=== PATIENT | female | born 1990 | race Hispanic/Latino ===

== ENCOUNTER 2017-11-18 18:02 | Inpatient (IN) | payer MEDICAID ==
--- NOTE | 2017-11-18 18:20 | C.PDOC ---
History Of Present Illness 27 y/o female, w/ no significant past medical history, presents to the ER for psychiatric evaluation. Patient states that she was talking to her parents on the phone. Patient reports that her parents were lying and she told them that they would find her " body." She was evaluated at [facility], she was medically cleared and diagnosed with delusional disorder. She was transferred here because there were no beds available in [facility]. Patient admits to occasional marijuana use. Denies having suicidal ideation, homicidal ideation, CP, SOB, fever, and chills. Time Seen by Provider: 11/18/17 18:19 Chief Complaint (Nursing): Psychiatric Evaluation History Per: Patient History/Exam Limitations: no limitations Onset/Duration Of Symptoms: Days Current Symptoms Are (Timing): Still Present Severity: Moderate Past Medical History Reviewed: Historical Data, Nursing Documentation, Vital Signs Vital Signs: Last Vital Signs Temp 98.5 F 11/18/17 18:11 Pulse 101 H 11/18/17 18:11 Resp BP 113/75 11/18/17 18:11 Pulse Ox 99 11/18/17 19:31 - Medical History PMH: No Chronic Diseases Surgical History: No Surg Hx Family History: States: No Known Family Hx - Social History Hx Alcohol Use: Yes Hx Substance Use: No - Immunization History Hx Tetanus Toxoid Vaccination: No Hx Influenza Vaccination: No Hx Pneumococcal Vaccination: No Review Of Systems Except As Marked, All Systems Reviewed And Found Negative. Constitutional: Negative for: Fever, Chills Physical Exam - Physical Exam Appears: Non-toxic, No Acute Distress Skin: Normal Color, Warm, Dry Head: Atraumatic, Normacephalic Eye(s): bilateral: Normal Inspection, PERRL, EOMI Nose: Normal Oral Mucosa: Moist Neck: Supple, Other (no meningeal signs) Chest: Symmetrical Cardiovascular: Rhythm Regular Respiratory: Normal Breath Sounds, No Rales, No Rhonchi, No Wheezing Gastrointestinal/Abdominal: Normal Exam, Soft, No Tenderness, No Guarding, No Rebound Back: Normal Inspection Extremity: Normal ROM Extremity: Bilateral: Atraumatic Neurological/Psych: Oriented x3, Normal Speech, Normal Motor, Normal Sensation, Normal Reflexes ED Course And Treatment O2 Sat by Pulse Oximetry: 99 (RA) Pulse Ox Interpretation: Normal Medical Decision Making Medical Decision Making: Neuro exam unremarkable. Delusional on my exam. medically cleared by previous institution. labs reviewed, medically clear Disposition - Disposition Disposition Time: 19:31 Condition: GOOD Forms: [facility] (Maori) - Clinical Impression Clinical Impression: Delusional disorder - Scribe Statement The provider has reviewed the documentation as recorded by the [place] Amrita Mckinney Provider Attestation: All medical record entries made by the Scribe were at my direction and personally dictated by me. I have reviewed the chart and agree that the record accurately reflects my personal performance of the history, physical exam, medical decision making, and the department course for this patient. I have also personally directed, reviewed, and agree with the discharge instructions and disposition.
--- NOTE | 2017-11-18 22:34 | PCM.BM ---
<Lisa Buckley - Last Filed: 11/18/17 22:33> Treatment Plan Problems - Problems identified on initial assessmt Delusions Date Initiated: 11/18/17 (t) Time Initiated: 22:33 Assessment reference: NA Status: Active Treatment assets and liabiliti Patient Assests: physically healthy, good support system Patient Liabilities: substance abuse (Marijuana) - Milieu Protocol Maintain good personal hygiene: daily Encourage regular showers, daily Remind patient to perform daily oral care, every shift Assist patient to perform ADL's Conduct patient checks and document Observation sheet: Q15 minutes Maintain personal safety: every shift Educate patient to report safety concerns to staff, every shift Monitor environment for contraband/sharps Medication safety: Monitor for expected outcome, potential side effects: every shift, Assess barriers to learning: every shift, Assess readiness for medication education: every shift <Chris Scott - Last Filed: 11/19/17 11:33> - Diagnosis (1) Bipolar disorder, curr episode mixed, severe, with psychotic features Status: Acute Interventions: 11/19/17 11:33 * Assess/adjust medications daily and /or as needed * See patient on an individual basis 7x/week to assess level of manic behaviors and stability * Discuss risks, benefits, side effects and alternatives of medications * <Deloris Vanegas - Last Filed: 11/19/17 14:09> Family Contact Family involvement: Family/SO is involved Family contact: Patient agrees to contact Family contact name: Marlen Caldwell-mother Family contacted how many times per week?: 2 - Goals for Treatment Patient goals for treatment: "I want to go home." Discharge/Continuing Care - Education Needs Education Needs: Patient Medication, Patient Coping Skills - Discharge Discharge Criteria: Tolerates medication w/o severe side effects, Reduction of target symptoms Discharge to:: Home, With Family - Treatment Team Participation Discussed with Family/SO: No Was Patient/Family/SO present at Treatment Team Meeting: Yes
[2017-11-19 06:39] VITALS: RESP 20; TEMP 98.5; O2SAT 95
--- NOTE | 2017-11-19 10:40 | PCM.PSYCH ---
Initial Psychiatric Evaluation - Initial Psychiatric Evaluation Type of Admission: Voluntary Legal Status: Capacity Chief Complaint (in patient's own words): My family was saying I am delusional.' History of Present Illness and Precipitating Events: Patient is a 27 years old CF, S, currently living alone, with history of anxiety disorder, was escorted to the hospital, due to a disorganized behavior and suicidal ideation. Patient states a long history of anxiety disorder. However she denies any past history of inpatient psychiatric hospitalizations. she does report history of follow-up with a psychiatrist in the past. Patient appeared very delusional, manic and irritable. She remained a poor historian. She was superficially cooperative but guarded about the details. As per the collateral, mother, patient has seen very delusional and paranoid lately. Since , she has been delusional about her voice instructor that he is in love with her. She has been harassing him on the social media and has been going to his gym. He has put a restraining order against her and she has been to the court. Recently she became increasingly delusional that he is in love with her again, she is very famous celebrity. She has been very irritable, and agitated towards her sister and towards her father. She has been very aggressive towards the family she is not sleeping at all. she believes that she has a physical deformity and she is spending a lot of money on acupuncture and other procedures. As per the mother yesterday when the family tried to convince her became increasingly depressed, became very irritable and agitated and made a statement that you will find my body in a coffin.' Family got concerned, called 911 and patient was escorted to the hospital to get help. Patient appears to have racing thoughts, flight of ideas, irritability and agitation. She continues to have delusions of grandiosity. Her speech was disorganized, circumstantial and tangential. However she denies any suicidal ideation or homicidal ideation. She denies any substance abuse. Medical History: Back and neck pain Current Medications: Active Medications Generic Name Dose Route Start Last Admin Trade Name Freq PRN Reason Stop Dose Admin Cyclobenzaprine HCl 5 mg 11/18/17 21:45 11/18/17 22:04 Flexeril PO 5 mg BID CELIA Administration Diphenhydramine HCl 25 mg 11/18/17 21:40 11/18/17 22:04 Benadryl PO 25 mg Q6H PRN Administration Anxiety Trazodone HCl 50 mg 11/18/17 23:45 11/18/17 23:43 Desyrel PO Not Given HS CELIA Past Psychiatric History - Past Psychiatric History Previous Treatment History: None Pertinent Medical Hx (Current Medical&Sleep Prob, Allergies): Allergies Allergy/AdvReac Type Severity Reaction Status Date / Time No Known Allergies Allergy Unverified 11/18/17 18:16 No Known Home Med 11/18/17 Review of Systems - Review of Systems All systems: reviewed and no additional remarkable complaints except - Psychiatric Psychiatric: Anxiety, Behavioral Changes, Irritability, Mood Swings, Paranoia. absent: Auditory Hallucinations, Suicidal Ideation Mental Status Examination - Personal Presentation Personal Presentation: Looks stated age - Affect Affect: Broad - Motor Activity Motor Activity: Psychomotor Agitation - Reliability in Providing Information Reliability in Providing Information: Poor, due to altered mood - Speech Speech: Disorganized - Mood Mood: Anxious - Formal Thought Process Formal Thought Process: Delusions, Loosening of associations, Flight of ideas, Circumstantial - Hallucinations/Delusions Delusions: Persecution - Obsessions/Compulsions Obsessions: No Compulsions: No - Cognitive Functions Orientation: Person, Place, Situation, Time Sensorium: Alert Attention/Concentration: Attentive Abstract Thinking: [place] Estimate of Intelligence: Below average Judgement: Imparied, as evidence by: Poor judgement, Imparied, as evidence by: Lack of insight into illness - Risk Risk: Diminished functioning - Strength & Assets Inventory Strength & Assets Inventory: Family support DSM 5 DX - DSM 5 DSM 5 Diagnosis: Bipolar I most recent episode manic severe with psychotic features - Recommended/Plan of Treatment Treatment Recommendations and Plan of Treatment: Bipolar I most recent episode manic severe with psychotic features CBT Psychoeducation Supportive therapy, group therapy, individual therapy Benadryl 25 mg by mouth every 6 hours when necessary he Trazodone 50 mg by mouth daily at bedtime - Smoking Cessation Smoking Cessation Initiated: No
[2017-11-20 08:53] VITALS: BP 106/71; PULSE 134
--- NOTE | 2017-11-20 09:56 | PCM.PYCHDC ---
Mental Status Examination - Mental Status Examination Orientation: Person, Place, Situation, Time Memory: Intact Mood: Neutral Affect: Constricted Speech: Soft Attention: WNL Concentration: WNL Association: WNL Fund of Knowledge: WNL Formal Thought Process: No Impairment Description of patient's judgement and insight: PARTIALLY IMPAIRED Psychotic Thoughts and Behaviors: denies any AVH Suicidal Ideation: No Current Homicidal Ideation?: No Discharge Summary - Discharge Note Reason for Hospitalization: Patient is a 27 years old CF, S, currently living alone, with history of anxiety disorder, was escorted to the hospital, due to a disorganized behavior and suicidal ideation. Patient states a long history of anxiety disorder. However she denies any past history of inpatient psychiatric hospitalizations. she does report history of follow-up with a psychiatrist in the past. Patient appeared very delusional, manic and irritable. She remained a poor historian. She was superficially cooperative but guarded about the details. As per the collateral, mother, patient has seen very delusional and paranoid lately. Since , she has been delusional about her networking technology instructor that he is in love with her. She has been harassing him on the social media and has been going to his gym. He has put a restraining order against her and she has been to the court. Recently she became increasingly delusional that he is in love with her again, she is very famous celebrity. She has been very irritable, and agitated towards her sister and towards her father. She has been very aggressive towards the family she is not sleeping at all. she believes that she has a physical deformity and she is spending a lot of money on acupuncture and other procedures. As per the mother yesterday when the family tried to convince her became increasingly depressed, became very irritable and agitated and made a statement that you will find my body in a coffin.' Family got concerned, called 911 and patient was escorted to the hospital to get help. Patient appears to have racing thoughts, flight of ideas, irritability and agitation. She continues to have delusions of grandiosity. Her speech was disorganized, circumstantial and tangential. However she denies any suicidal ideation or homicidal ideation. She denies any substance abuse. Consultations:: List each consultation separately and include: 1. Reason for request. 2. Findings. 3. Follow-up Summary of Hospital Course include:: 1. Description of specific treatment plan utilized for patients during their course of treatmen. 2. Summarize the time- course for resolution of acute symptoms and/or regressed behaviors. 3. Describe issues identified and worked on during hospitalization. 4. Describe medication utilized. 5. Describe medical problems identified and treated. 6. Reassessment of suicide risk Summary of Hospital Course: Patient is a 27 years old CF, S, currently living alone, with history of anxiety disorder, was escorted to the hospital, due to a disorganized behavior and suicidal ideation. Patient states a long history of anxiety disorder. However she denies any past history of inpatient psychiatric hospitalizations. she does report history of follow-up with a psychiatrist in the past. Patient appeared very delusional, manic and irritable. She remained a poor historian. She was superficially cooperative but guarded about the details. As per the collateral, mother, patient has seen very delusional and paranoid lately. Since , she has been delusional about her networking technology instructor that he is in love with her. She has been harassing him on the social media and has been going to his gym. He has put a restraining order against her and she has been to the court. Recently she became increasingly delusional that he is in love with her again, she is very famous celebrity. She has been very irritable, and agitated towards her sister and towards her father. She has been very aggressive towards the family she is not sleeping at all. she believes that she has a physical deformity and she is spending a lot of money on acupuncture and other procedures. As per the mother yesterday when the family tried to convince her became increasingly depressed, became very irritable and agitated and made a statement that you will find my body in a coffin.' Family got concerned, called 911 and patient was escorted to the hospital to get help. Patient appears to have racing thoughts, flight of ideas, irritability and agitation. She continues to have delusions of grandiosity. Her speech was disorganized, circumstantial and tangential. However she denies any suicidal ideation or homicidal ideation. She denies any substance abuse. Medical History: Back and neck pain - Diagnosis (1) Bipolar disorder, curr episode mixed, severe, with psychotic features Current Visit: Yes Status: Acute - Final Diagnosis (DSM 5) Condition upon Discharge: GOOD Disposition: HOME/ ROUTINE Follow-up Treatment Plan: Bipolar I most recent episode manic severe with psychotic features CBT Psychoeducation Supportive therapy, group therapy, individual therapy Benadryl 25 mg by mouth every 6 hours when necessary he Trazodone 50 mg by mouth daily at bedtime
== END 2017-11-20 11:22 | disposition home or self-care (01) | DRG 885 ==
LOC: C.ER 18:02 → C.5E 19:28
PROVIDERS: ADMIT Psychiatry & Neurology Psychiatry; ATTEND Psychiatry & Neurology Psychiatry
PROC: GZHZZZZ Group Psychotherapy (ICD-10-PCS; principal; 2017-11-18)
PROC: GZ56ZZZ Individual Psychotherapy, Supportive (ICD-10-PCS; 2017-11-18)
DX: F31.64 Bipolar disorder, current episode mixed, severe, with psychotic features (principal); F41.9 Anxiety disorder, unspecified